=== PATIENT | male | born 1970 | race Caucasian/White ===

== ENCOUNTER 2020-09-28 14:38 | Inpatient (IN) | payer OTHER ==
[2020-09-28] MEDS ORDERED: FAMOTIDINE 20 MG/50 ML IVPB 20 MG/50 ML MG IVPB ONE ×2 (16:30→17:01)
[2020-09-28] MEDS ORDERED: MAG HYDROX/AL HYDROX/SIMETH 30 ML UNIT-DOSE CUP PO ONE (16:30)
[2020-09-28] MEDS ORDERED: MAG HYDROX/AL HYDROX/SIMETH 30 ML UNIT-DOSE CUP ONE (17:00)
[2020-09-28 17:05] LABS: BASO % 1.7 % (0-2.0); EOS % 1.7 % (0-4.5); HEMATOCRIT 36.6 % (35.4-49); HEMOGLOBIN 12.2 GM/dL (11.7-16.9); LYMPH % 16.4 % (8-40); MCH 34.9 pg (25.7-33.7); MCHC 33.4 g/dl (32.0-35.9); MEAN CELL VOLUME 104.7 fl (80-96); MEAN PLT VOLUME 9.4 fl (7.5-11.1); MONO % 9.9 % (3.8-10.2); NEUT % 70.3 % (42.8-82.8); PLATELET COUNT 124 10^3/uL (134-434); WHITE BLOOD COUNT 7.5 K/mm3 (4.0-10.0)
[2020-09-28 17:19] LABS: INR 1.53 (0.83-1.09); PROTHROMBIN TIME (PATIENT) 18.3 SEC (9.7-13.0)
[2020-09-28 17:22] LABS: ACTIVATED PTT 37.5 SECONDS (25.2-36.5)
[2020-09-28] MEDS ORDERED: CEFTRIAXONE 1 GM in DEXTROSE 5%-WATER - 50 ML IVPB ONE (17:23)
[2020-09-28] MEDS ORDERED: FOLIC ACID INJECTION - 1 MG, THIAMINE HCL 100 MG, MULTIVIT INJECTION ADULT 10 ML in SOD... IVPB ONE (17:26)
[2020-09-28 17:29] LABS: ALBUMIN 2.4 g/dl (3.4-5.0)
[2020-09-28 17:31] LABS: BILIRUBIN,DIRECT 2.1 mg/dL (0.0-0.2); CREATININE 0.6 mg/dL (0.55-1.3)
[2020-09-28 17:33] LABS: BILIRUBIN,TOTAL 3.4 mg/dL (0.2-1)
[2020-09-28 17:44] LABS: URINE APPEARANCE CLEAR; URINE BILIRUBIN NEGATIVE (NEGATIVE); URINE COLOR YELLOW; URINE GLUCOSE (UA) NEGATIVE (NEGATIVE); URINE KETONE NEGATIVE (NEGATIVE); URINE LEUK ESTERASE NEGATIVE (NEGATIVE); URINE NITRITE NEGATIVE (NEGATIVE); URINE PROTEIN NEGATIVE (NEGATIVE)
[2020-09-28] MEDS ORDERED: CEFTRIAXONE 1 GM/50 ML BAG ONE (18:21)
[2020-09-29] MEDS ORDERED: LORazepam 1 MG TABLET PO PRN (00:30)
[2020-09-29] MEDS ORDERED: LACTATED RINGERS SOLUTION 1,000 ML IV SCH (00:30)
[2020-09-29] MEDS ORDERED: IBUPROFEN 200 MG TABLET PO PRN (00:36)
[2020-09-29] MEDS ORDERED: PANTOPRAZOLE SODIUM 40 MG VIAL IVPUSH ONE (00:37)
[2020-09-29] MEDS ORDERED: THIAMINE HCL 200 MG/2 ML VIAL ONE (01:49)
[2020-09-29] MEDS ORDERED: PANTOPRAZOLE SODIUM 40 MG VIAL ONE (01:50)
[2020-09-29 03:53] VITALS: BMI 24.5
[2020-09-29] MEDS ORDERED: THIAMINE HCL 200 MG/2 ML VIAL IVPB ONE (08:00)
[2020-09-29] MEDS ORDERED: THIAMINE HCL 200 MG/2 ML VIAL IVPB SCH (08:00)
[2020-09-29 08:13] LABS: HEMATOCRIT 40.5 % (35.4-49); HEMOGLOBIN 13.4 GM/dL (11.7-16.9); MCH 34.8 pg (25.7-33.7); MCHC 33.1 g/dl (32.0-35.9); MEAN CELL VOLUME 105.1 fl (80-96); PLATELET COUNT 130 10^3/uL (134-434); RBC 3.85 M/mm3 (4.00-5.60); RDW 12.9 % (11.9-15.9); WHITE BLOOD COUNT 8.1 K/mm3 (4.0-10.0)
[2020-09-29 08:15] LABS: INR 1.43 (0.83-1.09); PROTHROMBIN TIME (PATIENT) 17.4 SEC (9.7-13.0)
[2020-09-29 08:32] LABS: BLOOD UREA NITROGEN 7.5 mg/dL (7-18); CALCIUM 7.8 mg/dL (8.5-10.1)
[2020-09-29 08:33] LABS: ALBUMIN 2.6 g/dl (3.4-5.0); BILIRUBIN,DIRECT 2.3 mg/dL (0.0-0.2); MAGNESIUM 1.7 mg/dL (1.8-2.4)
[2020-09-29 08:36] LABS: BILIRUBIN,TOTAL 4.4 mg/dL (0.2-1); CREATININE 0.7 mg/dL (0.55-1.3); TOT PROT 8.6 g/dl (6.4-8.2)
[2020-09-29] MEDS: PANTOPRAZOLE 40 MG TABLET PO SCH (09:18)
[2020-09-29] MEDS ORDERED: DOCUSATE SODIUM 100 MG CAPSULE (FP) PO SCH (10:00)
[2020-09-29 11:45] LABS: BF WBC & OTHER NUCLEATED CELLS 459 /mm3
[2020-09-29 12:31] LABS: BODY FLUID MACROPHAGES 9 %; BODY FLUID MESOTHELIAL 29 %; BODY FLUID MONOCYTE 2 %
[2020-09-29] MEDS ORDERED: ACETAMINOPHEN 325 MG TABLET (FP) PO PRN (15:28)
[2020-09-29] MEDS ORDERED: chlordiazePOXIDE HCL 25 MG CAPSULE PO SCH (15:30)
[2020-09-29] MEDS: LORazepam 1 MG TABLET PO SCH (17:44)
[2020-09-29] MEDS: SPIRONOLACTONE 25 MG TABLET PO SCH (21:00)
[2020-09-30] MEDS: LORazepam 1 MG TABLET PO SCH ×4 (05:52→18:17)
[2020-09-30 09:06] LABS: BASO % 1.3 % (0-2.0); EOS % 3.7 % (0-4.5); HEMATOCRIT 37.6 % (35.4-49); HEMOGLOBIN 12.5 GM/dL (11.7-16.9); MCH 34.6 pg (25.7-33.7); MCHC 33.2 g/dl (32.0-35.9); MEAN CELL VOLUME 104.3 fl (80-96); MEAN PLT VOLUME 9.4 fl (7.5-11.1); MONO % 10.5 % (3.8-10.2); NEUT % 63.5 % (42.8-82.8); PLATELET COUNT 118 10^3/uL (134-434); RDW 13.2 % (11.9-15.9)
[2020-09-30 09:39] LABS: BLOOD UREA NITROGEN 11.9 mg/dL (7-18); MAGNESIUM 1.9 mg/dL (1.8-2.4)
[2020-09-30 09:42] LABS: CREATININE 0.7 mg/dL (0.55-1.3); PHOSPHOROUS 3.2 mg/dL (2.5-4.9)
[2020-09-30 09:43] LABS: ALBUMIN 2.2 g/dl (3.4-5.0)
[2020-09-30 09:45] LABS: BILIRUBIN,DIRECT 1.9 mg/dL (0.0-0.2)
[2020-09-30 09:47] LABS: BILIRUBIN,TOTAL 3.8 mg/dL (0.2-1); TOT PROT 7.4 g/dl (6.4-8.2)
[2020-09-30] MEDS ORDERED: THIAMINE HCL 100 MG TABLET (FP) PO SCH (10:00)
[2020-09-30] MEDS ORDERED: PT OWN MED DRAWER 7, Y5N ONE (10:50)
[2020-09-30] MEDS: SPIRONOLACTONE 25 MG TABLET PO SCH ×2 (10:51→21:10)
[2020-09-30] MEDS: THIAMINE HCL 100 MG TABLET (FP) PO SCH ×2 (10:52→21:10)
[2020-09-30] MEDS: NADOLOL 20 MG TABLET (FP) PO SCH (10:52)
[2020-09-30] MEDS: MULTIVITAMINS (DAILY MVI) TABLET (FP) PO SCH (10:52)
[2020-09-30] MEDS: PANTOPRAZOLE 40 MG TABLET PO SCH (10:52)
[2020-09-30 15:07] LABS: BODY FLUID ALBUMIN 1.1 g/dL (Not Estab.)
[2020-10-01] MEDS: LORazepam 1 MG TABLET PO SCH ×4 (00:24→18:09)
[2020-10-01 09:18] LABS: CALCIUM 7.9 mg/dL (8.5-10.1)
[2020-10-01 09:19] LABS: BLOOD UREA NITROGEN 14.9 mg/dL (7-18)
[2020-10-01 09:22] LABS: CREATININE 0.8 mg/dL (0.55-1.3)
[2020-10-01] MEDS: SPIRONOLACTONE 25 MG TABLET PO SCH ×2 (10:30→21:48)
[2020-10-01] MEDS: NADOLOL 20 MG TABLET (FP) PO SCH (10:32)
[2020-10-01] MEDS: PANTOPRAZOLE 40 MG TABLET PO SCH (10:32)
[2020-10-01] MEDS: MULTIVITAMINS (DAILY MVI) TABLET (FP) PO SCH (10:33)
[2020-10-01] MEDS: THIAMINE HCL 100 MG TABLET (FP) PO SCH ×2 (10:34→21:49)
[2020-10-02] MEDS: LORazepam 1 MG TABLET PO SCH ×4 (00:57→17:09)
[2020-10-02 07:48] LABS: BLOOD UREA NITROGEN 15.8 mg/dL (7-18); CALCIUM 7.9 mg/dL (8.5-10.1)
[2020-10-02 07:52] LABS: CREATININE 0.8 mg/dL (0.55-1.3)
[2020-10-02] MEDS: SPIRONOLACTONE 25 MG TABLET PO SCH ×2 (09:23→22:04)
[2020-10-02] MEDS: NADOLOL 20 MG TABLET (FP) PO SCH (09:23)
[2020-10-02] MEDS: MULTIVITAMINS (DAILY MVI) TABLET (FP) PO SCH (09:23)
[2020-10-02] MEDS: THIAMINE HCL 100 MG TABLET (FP) PO SCH ×2 (09:23→22:04)
[2020-10-02] MEDS: PANTOPRAZOLE 40 MG TABLET PO SCH (09:23)
[2020-10-02 19:09] LABS: TRANSGLUTAMINASE IGA 5 U/mL (0-3); TRANSGLUTAMINASE IGG 8 U/mL (0-5)
[2020-10-03] MEDS: LORazepam 1 MG TABLET PO SCH ×5 (00:15→23:30)
[2020-10-03 08:28] LABS: BASO % 1.8 % (0-2.0); EOS % 2.7 % (0-4.5); HEMATOCRIT 38.9 % (35.4-49); HEMOGLOBIN 13.2 GM/dL (11.7-16.9); LYMPH % 17.9 % (8-40); MCH 34.9 pg (25.7-33.7); MCHC 33.9 g/dl (32.0-35.9); MONO % 9.2 % (3.8-10.2); NEUT % 68.4 % (42.8-82.8); PLATELET COUNT 111 10^3/uL (134-434); RBC 3.77 M/mm3 (4.00-5.60); RDW 13.3 % (11.9-15.9); WHITE BLOOD COUNT 8.8 K/mm3 (4.0-10.0)
[2020-10-03 08:47] LABS: CALCIUM 8.2 mg/dL (8.5-10.1)
[2020-10-03 08:48] LABS: ALBUMIN 2.3 g/dl (3.4-5.0)
[2020-10-03 08:51] LABS: CREATININE 0.8 mg/dL (0.55-1.3)
[2020-10-03 08:53] LABS: BILIRUBIN,TOTAL 3.4 mg/dL (0.2-1)
[2020-10-03] MEDS ORDERED: PT OWN MED DRAWER 7, Y5N ONE ×2 (09:02→20:36)
[2020-10-03] MEDS: PANTOPRAZOLE 40 MG TABLET PO SCH (09:03)
[2020-10-03] MEDS: MULTIVITAMINS (DAILY MVI) TABLET (FP) PO SCH (09:03)
[2020-10-03] MEDS: NADOLOL 20 MG TABLET (FP) PO SCH (09:03)
[2020-10-03] MEDS: SPIRONOLACTONE 25 MG TABLET PO SCH ×2 (09:03→21:03)
[2020-10-03] MEDS: THIAMINE HCL 100 MG TABLET (FP) PO SCH ×2 (09:03→21:03)
[2020-10-03] MEDS ORDERED: FLUCONAZOLE 100 MG TABLET (UD) PO ONE (15:03)
[2020-10-03 20:14] LABS: HIV INTERPRETATION NEGATIVE (NEGATIVE)
[2020-10-04] MEDS: LORazepam 1 MG TABLET PO SCH ×3 (06:04→17:37)
[2020-10-04] MEDS: SPIRONOLACTONE 25 MG TABLET PO SCH ×2 (09:12→21:00)
[2020-10-04] MEDS: THIAMINE HCL 100 MG TABLET (FP) PO SCH ×2 (09:12→21:00)
[2020-10-04] MEDS: PANTOPRAZOLE 40 MG TABLET PO SCH (09:12)
[2020-10-04] MEDS: NADOLOL 20 MG TABLET (FP) PO SCH (09:12)
[2020-10-04] MEDS: MULTIVITAMINS (DAILY MVI) TABLET (FP) PO SCH (09:12)
[2020-10-04] MEDS: FLUCONAZOLE 100 MG TABLET (UD) PO SCH (14:17)
[2020-10-05] MEDS: LORazepam 1 MG TABLET PO SCH ×2 (00:25→05:43)
[2020-10-05] MEDS: PANTOPRAZOLE 40 MG TABLET PO SCH (09:17)
[2020-10-05] MEDS: NADOLOL 20 MG TABLET (FP) PO SCH (09:17)
[2020-10-05] MEDS: MULTIVITAMINS (DAILY MVI) TABLET (FP) PO SCH (09:17)
[2020-10-05] MEDS: FLUCONAZOLE 100 MG TABLET (UD) PO SCH (09:18)
[2020-10-05] MEDS: THIAMINE HCL 100 MG TABLET (FP) PO SCH ×2 (09:18→21:32)
[2020-10-05] MEDS: SPIRONOLACTONE 25 MG TABLET PO SCH ×2 (09:18→21:32)
[2020-10-05] MEDS: LORazepam 0.5 MG TABLET PO SCH ×3 (11:03→22:38)
[2020-10-06] MEDS: LORazepam 0.5 MG TABLET PO SCH (06:16)
[2020-10-06 07:04] LABS: BASO % 1.2 % (0-2.0); HEMATOCRIT 40.4 % (35.4-49); HEMOGLOBIN 13.3 GM/dL (11.7-16.9); LYMPH % 29.1 % (8-40); MCH 34.2 pg (25.7-33.7); MCHC 32.9 g/dl (32.0-35.9); MEAN PLT VOLUME 9.7 fl (7.5-11.1); MONO % 13.1 % (3.8-10.2); NEUT % 52.6 % (42.8-82.8); PLATELET COUNT 92 10^3/uL (134-434); RBC 3.89 M/mm3 (4.00-5.60); RDW 13.3 % (11.9-15.9); WHITE BLOOD COUNT 6.2 K/mm3 (4.0-10.0)
[2020-10-06 07:23] LABS: ALBUMIN 2.4 g/dl (3.4-5.0); BLOOD UREA NITROGEN 10.9 mg/dL (7-18); CALCIUM 8.6 mg/dL (8.5-10.1)
[2020-10-06 07:24] LABS: MAGNESIUM 1.7 mg/dL (1.8-2.4)
[2020-10-06 07:26] LABS: CREATININE 0.9 mg/dL (0.55-1.3); PHOSPHOROUS 4.9 mg/dL (2.5-4.9)
[2020-10-06 07:27] LABS: BILIRUBIN,TOTAL 3.5 mg/dL (0.2-1)
[2020-10-06] MEDS ORDERED: LORazepam 0.5 MG TABLET PO SCH (09:00)
[2020-10-06] MEDS ORDERED: PT OWN MED DRAWER 7, Y5N ONE (09:20)
[2020-10-06] MEDS: SPIRONOLACTONE 25 MG TABLET PO SCH (09:24)
[2020-10-06] MEDS: NADOLOL 20 MG TABLET (FP) PO SCH (09:25)
[2020-10-06] MEDS: MULTIVITAMINS (DAILY MVI) TABLET (FP) PO SCH (09:25)
[2020-10-06] MEDS: PANTOPRAZOLE 40 MG TABLET PO SCH (09:25)
[2020-10-06] MEDS: THIAMINE HCL 100 MG TABLET (FP) PO SCH (09:25)
[2020-10-06] MEDS: FLUCONAZOLE 100 MG TABLET (UD) PO SCH (09:25)
[2020-10-06] MEDS ORDERED: MAGNESIUM SULF 50% (8.12 MEQ/2 ML-1 GM VIAL) IVPB ONE (10:54)
[2020-10-06 12:58] VITALS: BP 109/73; PULSE 81; TEMP 98.7
[2020-10-08] MEDS ORDERED: LORazepam 0.5 MG TABLET PO PRN
[2020-10-08] MEDS ORDERED: LORazepam 0.5 MG TABLET PO SCH (05:00)
[2020-10-09] MEDS ORDERED: LORazepam 0.5 MG TABLET PO ONE (05:00)
== END 2020-10-06 15:43 | disposition home or self-care (01) | DRG 280 ==
LOC: JER 14:38 → JERBED 22:36 → J7W 09-29 03:26
PROVIDERS: ADMIT Hospitalist; ATTEND Internal Medicine
PROC: 06L38CZ Occlusion of Esophageal Vein with Extraluminal Device, Via Natural or Artificial Opening Endoscopic (ICD-10-PCS; 2020-10-03)
PROC: 0W9G3ZZ Drainage of Peritoneal Cavity, Percutaneous Approach (ICD-10-PCS; 2020-10-03)
PROC: 0DB78ZX Excision of Stomach, Pylorus, Via Natural or Artificial Opening Endoscopic, Diagnostic (ICD-10-PCS; principal; 2020-10-03 12:26)
DX: K70.31 Alcoholic cirrhosis of liver with ascites (principal); F10.288 Alcohol dependence with other alcohol-induced disorder; I10 Essential (primary) hypertension; B37.81 Candidal esophagitis; I85.00 Esophageal varices without bleeding; D69.6 Thrombocytopenia, unspecified; K29.20 Alcoholic gastritis without bleeding; Z59.0 Homelessness
CPT/HCPCS: 36415; 71045-TC-FY; 74177-TC; 76705-TC; 76942-TC; 80048; 80053; 80061; 80074; 80076; 81003; 82042; 82105; 82150; 82248; 82465; 82607; 82728; 82746; 82945; 82962; 82977; 83036; 83516; 83540; 83550; 83605; 83615; 83690; 83721; 83735; 83986; 84100; 84157; 85025; 85027; 85610; 85730; 86038; 86803; 86850; 86900; 86901; 87040; 87070; 87075; 87102; 87116; 87205; 87206; 87210; 87389; 88108; 88305-TC; 93005; 93010; 94010; 97116-GP; 97161-GP; 99285-25; C9803; Q9967; U0003; U0005

== ENCOUNTER 2020-10-08 18:20 | Emergency (ER) | payer SELFPAY ==
[2020-10-08 18:36] VITALS: TEMP 98.8; BMI 25.0
[2020-10-08] MEDS ORDERED: FAMOTIDINE 20 MG TABLET PO ONE (19:18)
[2020-10-08] MEDS ORDERED: MAG HYDROX/AL HYDROX/SIMETH 30 ML UNIT-DOSE CUP PO ONE (19:18)
[2020-10-08] MEDS ORDERED: ONDANSETRON *ODT* 4 MG TABLET SL ONE (19:20)
[2020-10-08] MEDS ORDERED: MAG HYDROX/AL HYDROX/SIMETH 30 ML UNIT-DOSE CUP ONE (19:52)
[2020-10-08] MEDS ORDERED: FAMOTIDINE 20 MG TABLET ONE (19:52)
[2020-10-08] MEDS ORDERED: ONDANSETRON *ODT* 4 MG TABLET ONE (19:52)
[2020-10-08 20:16] LABS: EOS % 3.1 % (0-4.5); HEMATOCRIT 35.6 % (35.4-49); HEMOGLOBIN 12.2 GM/dL (11.7-16.9); LYMPH % 20.3 % (8-40); MCH 34.8 pg (25.7-33.7); MCHC 34.4 g/dl (32.0-35.9); MEAN CELL VOLUME 101.1 fl (80-96); MONO % 12.5 % (3.8-10.2); NEUT % 63.1 % (42.8-82.8); PLATELET COUNT 81 10^3/uL (134-434); RBC 3.52 M/mm3 (4.00-5.60); RDW 12.9 % (11.9-15.9); WHITE BLOOD COUNT 6.6 K/mm3 (4.0-10.0)
[2020-10-08 20:22] LABS: INR 1.47 (0.83-1.09); PROTHROMBIN TIME (PATIENT) 17.6 SEC (9.7-13.0)
[2020-10-08 20:25] LABS: ACTIVATED PTT 36.7 SECONDS (25.2-36.5)
[2020-10-08 20:33] LABS: CALCIUM 8.3 mg/dL (8.5-10.1)
[2020-10-08 20:34] LABS: ALBUMIN 2.5 g/dl (3.4-5.0); BLOOD UREA NITROGEN 11.9 mg/dL (7-18)
[2020-10-08 20:38] LABS: BILIRUBIN,TOTAL 3.2 mg/dL (0.2-1)
[2020-10-08 20:39] LABS: TOT PROT 8.4 g/dl (6.4-8.2)
[2020-10-08 20:47] LABS: CREATININE 0.8 mg/dL (0.55-1.3)
[2020-10-08 21:21] VITALS: BP 116/72; PULSE 66
== END 2020-10-08 21:15 | disposition home or self-care (01) ==
LOC: JER 18:20
DX: R10.30 Lower abdominal pain, unspecified (principal)
CPT/HCPCS: 36415; 80053; 83690; 85025; 85610; 85730; 99284-25; Q0162

== ENCOUNTER 2021-06-07 10:01 | Inpatient (IN) | payer OTHER ==
[2021-06-07 10:19] VITALS: BMI 23.5
[2021-06-07] MEDS ORDERED: MAG HYDROX/AL HYDROX/SIMETH 30 ML UNIT-DOSE CUP PO ONE (12:47)
[2021-06-07] MEDS ORDERED: FAMOTIDINE 10 MG TABLET PO ONE (12:47)
[2021-06-07] MEDS ORDERED: FAMOTIDINE 20 MG TABLET ONE (12:51)
[2021-06-07 12:52] LABS: BASO % 1.3 % (0-2.0); EOS % 5.2 % (0-4.5); HEMATOCRIT 37.2 % (35.4-49); HEMOGLOBIN 12.7 GM/dL (11.7-16.9); LYMPH % 16.2 % (8-40); MCH 35.1 pg (25.7-33.7); MCHC 34.2 g/dl (32.0-35.9); MEAN CELL VOLUME 102.5 fl (80-96); MEAN PLT VOLUME 8.7 fl (7.5-11.1); MONO % 14.2 % (3.8-10.2); NEUT % 63.1 % (42.8-82.8); PLATELET COUNT 107 10^3/uL (134-434); RBC 3.62 M/mm3 (4.00-5.60); WHITE BLOOD COUNT 5.5 K/mm3 (4.0-10.0)
[2021-06-07] MEDS ORDERED: MAG HYDROX/AL HYDROX/SIMETH 30 ML UNIT-DOSE CUP ONE (12:52)
[2021-06-07 13:14] LABS: ACTIVATED PTT 45.5 SECONDS (25.2-36.5); INR 2.16 (0.83-1.09)
[2021-06-07 13:16] LABS: CHLORIDE 103 mmol/L (98-107); SODIUM 135 mmol/L (136-145)
[2021-06-07 13:17] LABS: CALCIUM 8.2 mg/dL (8.5-10.1)
[2021-06-07 13:18] LABS: ALBUMIN 2.4 g/dl (3.4-5.0); BLOOD UREA NITROGEN 11.1 mg/dL (7-18); CO2 29 mmol/L (21-32); GLUCOSE,RANDOM 97 mg/dL (74-106); LIPASE 248 U/L (73-393)
[2021-06-07 13:21] LABS: SGOT/AST 147 U/L (15-37)
[2021-06-07 13:23] LABS: TOT PROT 8.3 g/dl (6.4-8.2)
[2021-06-07 13:24] LABS: ALK PHOS 113 U/L (45-117)
[2021-06-07 13:26] LABS: N-TERMINAL BNP 49.5 pg/ml (5-125)
[2021-06-07 13:29] LABS: ANION GAP 3 MMOL/L (8-16); BILIRUBIN,TOTAL 5.6 mg/dL (0.2-1); SGPT/ALT 24 U/L (13-61)
[2021-06-07 14:28] LABS: CALCIUM 8.2 mg/dL (8.5-10.1)
[2021-06-07 14:29] LABS: BLOOD UREA NITROGEN 11.2 mg/dL (7-18)
[2021-06-07 14:32] LABS: CREATININE 0.8 mg/dL (0.55-1.3)
[2021-06-07] MEDS ORDERED: FUROSEMIDE 40 MG/4 ML INJECTABLE VIAL IVPUSH ONE (15:14)
[2021-06-07] MEDS ORDERED: LIDO 2%/EPI 1:200000 PRESRVFRE (20 ML SDVIAL) INF ONE (16:35)
[2021-06-07] MEDS ORDERED: LIDOCAINE 1%/EPI 1:100000 (20 ML MULTI DOSE VIAL) ONE (16:41)
[2021-06-07] MEDS ORDERED: FUROSEMIDE 40 MG/4 ML INJECTABLE VIAL ONE (18:45)
[2021-06-07 19:29] LABS: INR 2.3 (0.83-1.09); PROTHROMBIN TIME (PATIENT) 26.7 SEC (9.7-13.0)
[2021-06-07 21:50] LABS: EPI CELLS 4 /uL (0-25.1); HYALINE CASTS 0 /uL (0-3.1); PH,URINE 6.5 (5.0-8.0); URINE APPEARANCE CLEAR; URINE BACTERIA 1574 /uL (0-1359); URINE BILIRUBIN NEGATIVE (NEGATIVE); URINE COLOR YELLOW; URINE GLUCOSE (UA) NEGATIVE (NEGATIVE); URINE KETONE NEGATIVE (NEGATIVE); URINE LEUK ESTERASE NEGATIVE (NEGATIVE); URINE NITRITE NEGATIVE (NEGATIVE); URINE PROTEIN NEGATIVE (NEGATIVE); URINE RBC 12 /uL (0-23.9); URINE UROBILINOGEN 0.2 mg/dL (0.2-1.0)
[2021-06-07 21:59] LABS: CALCIUM 8.7 mg/dL (8.5-10.1)
[2021-06-07] MEDS ORDERED: LIDOCAINE PATCH REMOVAL MC SCH (22:00)
[2021-06-07 22:03] LABS: CREATININE 0.7 mg/dL (0.55-1.3)
[2021-06-07] MEDS ORDERED: oxyCODONE HCL 5 MG TABLET PO PRN ×2 (23:05→23:16)
[2021-06-07] MEDS: SPIRONOLACTONE 25 MG TABLET PO SCH (23:37)
[2021-06-08] MEDS ORDERED: BENZOCAINE/MENTH/CETYLPYRD CL 1 EACH LOZENGE MM PRN ×2 (02:24→19:40)
[2021-06-08] MEDS ORDERED: ALBUTEROL SO4 2.5/IPRATROPIUM 0.5 INH SOL 3 ML VIAL.NEB. NEB PRN ×2 (02:27→19:40)
[2021-06-08] MEDS: guaiFENesin/D-METHORPHAN HB 10 ML UNIT-DOSE CUPS PO PRN ×2 (03:30→11:03)
[2021-06-08 08:10] LABS: BASO % 0.2 % (0-2.0); HEMATOCRIT 38.7 % (35.4-49); HEMOGLOBIN 13.3 GM/dL (11.7-16.9); LYMPH % 6.9 % (8-40); MCH 35.3 pg (25.7-33.7); MCHC 34.5 g/dl (32.0-35.9); MEAN CELL VOLUME 102.6 fl (80-96); MEAN PLT VOLUME 8.9 fl (7.5-11.1); MONO % 7.9 % (3.8-10.2); PLATELET COUNT 99 10^3/uL (134-434); RBC 3.78 M/mm3 (4.00-5.60); RDW 14.8 % (11.9-15.9); WHITE BLOOD COUNT 9.8 K/mm3 (4.0-10.0)
[2021-06-08 08:17] LABS: ACTIVATED PTT 48.4 SECONDS (25.2-36.5); INR 2.82 (0.83-1.09); PROTHROMBIN TIME (PATIENT) 32.8 SEC (9.7-13.0)
[2021-06-08 08:41] LABS: ALBUMIN 2.1 g/dl (3.4-5.0); CALCIUM 8.3 mg/dL (8.5-10.1); MAGNESIUM 1.7 mg/dL (1.8-2.4)
[2021-06-08 08:44] LABS: CREATININE 0.8 mg/dL (0.55-1.3); PHOSPHOROUS 3.9 mg/dL (2.5-4.9)
[2021-06-08 08:45] LABS: BILIRUBIN,TOTAL 7.5 mg/dL (0.2-1)
[2021-06-08 08:46] LABS: TOT PROT 6.8 g/dl (6.4-8.2)
[2021-06-08 09:51] LABS: BILIRUBIN,DIRECT 2.6 mg/dL (0.0-0.2)
[2021-06-08] MEDS ORDERED: PNEUMOC 13-VAL CONJ-DIP CRM/PF 0.5 ML DISP.SYRIN IM ONE (10:00)
[2021-06-08] MEDS ORDERED: LIDOCAINE 5% TOPICAL PATCH TP SCH (10:00)
[2021-06-08] MEDS ORDERED: PNEUMOCOCCAL 23 VACCINE 0.5 ML VIAL IM ONE (10:00)
[2021-06-08] MEDS ORDERED: PHYTONADIONE 10 MG/1 ML AMP IVPB ONE (10:00)
[2021-06-08] MEDS ORDERED: NADOLOL 20 MG TABLET (FP) PO SCH (10:00)
[2021-06-08] MEDS ORDERED: PANTOPRAZOLE 40 MG TABLET PO SCH (10:00)
[2021-06-08] MEDS: SPIRONOLACTONE 25 MG TABLET PO SCH (11:00)
[2021-06-08 13:02] LABS: LACTIC ACID 2.9 mmol/L (0.4-2.0)
[2021-06-08] MEDS ORDERED: CEFTRIAXONE 1 GM in DEXTROSE 5%-WATER - 50 ML IVPB ONE (14:00)
[2021-06-08] MEDS ORDERED: ALBUMIN HUMAN 25% 12.5 GM/50 ML VIAL IV SCH (14:00)
[2021-06-08] MEDS ORDERED: CEFTRIAXONE 2 GM in DEXTROSE 5%-WATER 100 ML IVPB ONE (14:01)
[2021-06-08] MEDS ORDERED: ALBUMIN HUMAN 25% 100 ML VIAL IV SCH (15:30)
[2021-06-08] MEDS ORDERED: DEXTROSE 5%-WATER 100 ML IVPB ONE (15:48)
[2021-06-08] MEDS: ALBUMIN HUMAN 25% 100 ML VIAL IV SCH ×4 (17:11→18:19)
[2021-06-08 17:36] LABS: BF WBC & OTHER NUCLEATED CELLS 196 /mm3
[2021-06-08 18:29] LABS: BODY FLUID MACROPHAGES 16 %; BODY FLUID MONOCYTE 29 %
[2021-06-08] MEDS ORDERED: oxyCODONE HCL 5 MG TABLET PO PRN (19:40)
[2021-06-08] MEDS ORDERED: guaiFENesin/D-METHORPHAN HB 10 ML UNIT-DOSE CUPS PO PRN (19:40)
[2021-06-09 03:56] LABS: ARTERIAL BLD GAS O2 SATURATION 91.3 % (95-98); ARTERIAL BLOOD GAS BASE EXCESS 6.2 mmol/L (-2-2); ARTERIAL BLOOD GAS PO2 59.4 mmHg (80-100); ARTERIAL BLOOD GAS pH 7.435 (7.350-7.450)
[2021-06-09 04:06] LABS: ALLENS TEST POSITIVE
[2021-06-09 07:14] LABS: BASO % 0.4 % (0-2.0); EOS % 2.9 % (0-4.5); HEMATOCRIT 27.5 % (35.4-49); HEMOGLOBIN 9.6 GM/dL (11.7-16.9); LYMPH % 21.2 % (8-40); MCH 35.6 pg (25.7-33.7); MCHC 34.9 g/dl (32.0-35.9); MEAN PLT VOLUME 8.2 fl (7.5-11.1); NEUT % 62.5 % (42.8-82.8); PLATELET COUNT 61 10^3/uL (134-434); RDW 14.6 % (11.9-15.9); WHITE BLOOD COUNT 4.9 K/mm3 (4.0-10.0)
[2021-06-09 07:23] LABS: INR 2.32 (0.83-1.09); PROTHROMBIN TIME (PATIENT) 26.9 SEC (9.7-13.0)
[2021-06-09 07:31] LABS: BLOOD UREA NITROGEN 18.4 mg/dL (7-18); CALCIUM 8.2 mg/dL (8.5-10.1)
[2021-06-09 07:33] LABS: MAGNESIUM 1.9 mg/dL (1.8-2.4)
[2021-06-09 07:34] LABS: BILIRUBIN,DIRECT 2.3 mg/dL (0.0-0.2); CREATININE 0.6 mg/dL (0.55-1.3); PHOSPHOROUS 2.2 mg/dL (2.5-4.9)
[2021-06-09 07:36] LABS: BILIRUBIN,TOTAL 5.5 mg/dL (0.2-1); TOT PROT 5.5 g/dl (6.4-8.2)
[2021-06-09 07:47] LABS: ALBUMIN 2.8 g/dl (3.4-5.0)
[2021-06-09] MEDS ORDERED: POTASSIUM CHLORIDE TABS 20 MEQ TABLET.ER (FP) PO ONE (08:30)
[2021-06-09] MEDS: NAPH,MB-DB/K PH,MBDB POWDER PACKET PO SCH ×3 (09:08→23:16)
[2021-06-09] MEDS ORDERED: CEFTRIAXONE 2 GM in DEXTROSE 5%-WATER 100 ML IVPB SCH (10:00)
[2021-06-09] MEDS ORDERED: LIDOCAINE 5% TOPICAL PATCH TP SCH (10:00)
[2021-06-09] MEDS ORDERED: PANTOPRAZOLE 40 MG TABLET PO SCH (10:00)
[2021-06-09] MEDS ORDERED: NADOLOL 20 MG TABLET (FP) PO SCH (10:00)
[2021-06-09] MEDS: ALBUMIN HUMAN 25% 12.5 GM/50 ML VIAL IV SCH ×4 (11:15→13:10)
[2021-06-09 16:51] LABS: BASO % 0.6 % (0-2.0); EOS % 3.1 % (0-4.5); HEMATOCRIT 29.4 % (35.4-49); HEMOGLOBIN 10.3 GM/dL (11.7-16.9); LYMPH % 21.6 % (8-40); MCH 35.5 pg (25.7-33.7); MCHC 34.9 g/dl (32.0-35.9); MEAN CELL VOLUME 101.7 fl (80-96); MEAN PLT VOLUME 7.9 fl (7.5-11.1); MONO % 9.5 % (3.8-10.2); NEUT % 65.2 % (42.8-82.8); RBC 2.89 M/mm3 (4.00-5.60); RDW 14.5 % (11.9-15.9)
[2021-06-09 16:57] LABS: PLATELET COUNT 64 10^3/uL (134-434)
[2021-06-09] MEDS ORDERED: LIDOCAINE PATCH REMOVAL MC SCH (22:00)
[2021-06-10 02:32] VITALS: BP 99/60; PULSE 75; TEMP 98.5
[2021-06-10] MEDS ORDERED: SPIRONOLACTONE 25 MG TABLET PO SCH (10:00)
[2021-06-12 17:09] LABS: BODY FLUID ALBUMIN 0.8 g/dL (Not Estab.)
== END 2021-06-10 02:34 | disposition short-term general hospital (02) | DRG 280 ==
LOC: JER 10:01 → JERBED 18:23 → J7W 06-08 01:49 → J4W 06-08 10:10
PROVIDERS: ADMIT Hospitalist; ATTEND Internal Medicine
PROC: 0W9B30Z Drainage of Left Pleural Cavity with Drainage Device, Percutaneous Approach (ICD-10-PCS; principal; 2021-06-07)
DX: K70.31 Alcoholic cirrhosis of liver with ascites (principal); J96.01 Acute respiratory failure with hypoxia; K72.90 Hepatic failure, unspecified without coma; I10 Essential (primary) hypertension; J94.2 Hemothorax; J93.9 Pneumothorax, unspecified; D69.6 Thrombocytopenia, unspecified; J90 Pleural effusion, not elsewhere classified; I27.20 Pulmonary hypertension, unspecified; E83.42 Hypomagnesemia; E88.09 Other disorders of plasma-protein metabolism, not elsewhere classified; F10.10 Alcohol abuse, uncomplicated; R79.1 Abnormal coagulation profile; R16.1 Splenomegaly, not elsewhere classified; I85.00 Esophageal varices without bleeding; B96.81 Helicobacter pylori [H. pylori] as the cause of diseases classified elsewhere; K42.9 Umbilical hernia without obstruction or gangrene; J98.11 Atelectasis; Z59.00 Homelessness unspecified; Z86.19 Personal history of other infectious and parasitic diseases
CPT/HCPCS: 36415; 36430; 36600; 49406; 71045-TC-FY; 71046-TC-FY; 71250-TC; 74176-TC; 80048; 80053; 80076; 81003; 82042; 82105; 82140; 82150; 82248; 82803; 82945; 82962; 83605; 83615; 83690; 83735; 83880; 83986; 84100; 84157; 84478; 84484; 85025; 85610; 85730; 86850; 86900; 86901; 87040; 87070; 87075; 87086; 87102; 87116; 87205; 87206; 87210; 88108; 88305-TC; 93005; 93010; 99285-25; C9803; P9017; P9047; U0003; U0005